=== PATIENT | female | born 1960 | race Caucasian/White ===

== ENCOUNTER 2019-12-01 15:24 | Inpatient (IN) | payer BC, OTHER ==
[2019-12-01] MEDS ORDERED: Morphine 4 MG/ML VIAL ONE (16:29)
[2019-12-01] MEDS ORDERED: Ondansetron PF 4 MG/2 ML Vial ONE ×2 (16:30→19:08)
[2019-12-01] MEDS ORDERED: Pantoprazole 40 MG VIAL ONE (16:30)
--- NOTE | 2019-12-01 16:55 | RAD ---
EXAM: CHEST ONE VIEW HISTORY: Preoperative evaluation. History of cirrhosis and rheumatoid arthritis. COMPARISON: None FINDINGS: The cardiac silhouette and pulmonary vasculature are within normal limits. There are emphysematous ch anges seen within the lungs. There are increased interstitial densities which may be related to chronic interstitial lung changes. No consolidation or pleural fluid is identified. The osseous struc tures are intact. IMPRESSION: Prominent of interstitial markings likely related to chronic lung changes as opposed to infectious pr ocess. Emphysematous changes are seen with biapical pleural and parenchymal scarring. No definite acute cardiopulmonary process.
--- NOTE | 2019-12-01 17:05 | ULT ---
ULTRASOUND ABDOMEN LIMITED: (RIGHT UPPER QUADRANT) DATE: 12/01/2019 HISTORY: 59-year-old female with nausea, vomiting, and right upper quadrant abdominal pain. FINDINGS: There is an approximately 20 mm gallstone at the junction between the body and neck of the gallbladde r, apparently immobile. Gallbladder lumen is distended. There is mural thickening and mural edema, wi th thickness up to 7 mm. There is a small amount of pericholecystic fluid. Liver is enlarged. Hepatic echogenicity is diffusely mildly increased, which may or may not represent fatty liver. There is no hydronephrosis of the right kidney. Common duct caliber is 4 mm. Pancreas is poorly visualized. IMPRESSION: Positive for cholelithiasis and evidence for acute cholecystitis. ISAAC Givens POS: JIN
[2019-12-01] MEDS ORDERED: HYDROcodone/Acetaminophen 7.5/325 mg Tablet PO PRN ×2 (19:22)
[2019-12-01] MEDS ORDERED: Ondansetron PF 4 MG/2 ML Vial IVP PRN (19:22)
[2019-12-01] MEDS ORDERED: Acetaminophen 650 MG Suppository PR PRN (19:22)
[2019-12-01] MEDS ORDERED: Morphine 2 MG/ML VIAL SLOW IVP PRN (19:28)
[2019-12-01] MEDS: Nicotine 21 MG PATCH TD SCH (23:25)
[2019-12-01] MEDS: Famotidine 20 MG TAB PO SCH (23:27)
[2019-12-01] MEDS: Piperacillin/Tazobactam 3.375 GM in Sodium Chloride 0.9% 100 ML IVPB SCH (23:28)
[2019-12-01] MEDS: Acetaminophen 325 MG TAB PO PRN (23:34)
[2019-12-02 00:01] VITALS: BMI 38.0
[2019-12-02 03:52] LABS: #Eosinphils 0.1 thou/uL (0.0-0.7); #Lymphocytes 2.1 thou/uL (1.20-3.40); #Monocytes 0.9 thou/uL (0.11-0.59); #Neutrophils 10.7 thou/uL (1.40-6.50); %Basophils 0.3 % (0.0-1.0); %Eosinophils 0.6 % (0.0-10.0); %Monocytes 6.5 % (0.0-10.0); %Neutrophils 77.5 % (42.0-75.0); Hemoglobin 11.9 g/dL (12.0-16.0); Mean Corpuscular Volume 93.2 fL (78.0-98.0); Mean Platelet Volume 7.8 fL (7.4-10.4); Platelet Count 170 thou/uL (130-400); RBC Distribution Width 11.7 % (11.5-14.5); White Blood Cell (WBC) Count 13.8 thou/uL (4.8-10.8)
[2019-12-02 04:06] LABS: ALT (SGPT) 14 U/L (8-55); AST (SGOT) 12 U/L (5-34); Albumin 3.6 g/dL (3.5-5.0); Alkaline Phosphatase 99 U/L (40-110); Anion Gap 11 mmol/L (10-20); BUN (Urea Nitrogen) 8 mg/dL (9.8-20.1); Bilirubin, Total 0.6 mg/dL (0.2-1.2); Calc. Creatinine Clearance 152 mL/min (70-130); Calcium 8.5 mg/dL (7.8-10.44); Carbon Dioxide 29 mmol/L (22-29); Chloride 102 mmol/L (98-107); Estimated GFR-MDRD Greater than 90; Globulin 2.6 g/dL (2.4-3.5); Glucose 152 mg/dL (70-105); Protein, Total 6.2 g/dL (6.0-8.3); Sodium 138 mmol/L (136-145)
[2019-12-02] MEDS: Acetaminophen 325 MG TAB PO PRN (05:35)
[2019-12-02] MEDS: Morphine 4 MG/ML VIAL SLOW IVP PRN ×2 (05:37→19:35)
[2019-12-02] MEDS: Piperacillin/Tazobactam 3.375 GM in Sodium Chloride 0.9% 100 ML IVPB SCH ×3 (05:44→17:46)
--- NOTE | 2019-12-02 05:49 | HP ---
CHIEF COMPLAINT: Abdominal pain. HISTORY OF PRESENT ILLNESS: Ms. Ortega is a 59-year-old woman, who has had constant severe abdominal pain in her upper abdomen radiating to her back since last night around 8 o'clock. She states that she had three episodes of explosive diarrhea on Saturday and just felt somewhat poorly through the weekend and her stomach started to bother her last night, but really got bad after she tried to go to bed. She describes it as a band-like burning pain in her upper abdomen that goes around to her back. She has had similar milder episodes of pain in this area before, but they have always gone away. She has not really noticed what brings the pain on or causes it to relent. She cannot identify any alleviating or exacerbating factors for this pain except for pain medication received in the emergency room. She was evaluated at her local ER and transferred here for further care due to concerns for cholecystitis. CT showed a very distended gallbladder with a stone in the neck of the gallbladder and abdominal ultrasound here confirmed cholelithiasis with an immobile stone at the neck of the gallbladder, the distended gallbladder with mural thickening and edema and some pericholecystic fluid consistent with cholecystitis. She has had several episodes of nonbloody non coffee-grounds emesis, which she attributes to the pain more than anything else. She has not had any fevers, chills, jaundice or icterus that she has noted. No history of pancreatitis or liver problems. PAST MEDICAL HISTORY: None. PAST SURGICAL HISTORY: Appendectomy and hysterectomy with bladder lift with mesh and a postoperative mesh infection requiring multiple operations over several years to manage the infection and remove the mesh. FAMILY HISTORY: Aortic aneurysms in her sister and brother. SOCIAL HISTORY: She is a 2-pack a day smoker for 40 years. Drinks only rarely. Has used marijuana rarely in the past but none recently and no other drugs. OUTPATIENT MEDICATIONS: None. She did receive Zosyn in the emergency room, as well as Zofran and morphine. ALLERGIES: NONE. PHYSICAL EXAMINATION: VITAL SIGNS: The patient has been afebrile in the emergency room. Heart rate 78, respirations 20, 94% saturated on room air, and blood pressure 152/86. GENERAL: Reveals a pleasant woman, in no acute distress, who appears her stated age. She is not flushed or toxic in appearance. She is not jaundiced or icteric. She does occasionally grimace, especially with moving around. HEENT: Unremarkable. Pupils are equal. Extraocular movements are symmetric. Facial movement is symmetric. NECK: Supple without lymphadenopathy or thyroid nodules. HEART: Regular in its rate and rhythm without murmurs, rubs, or gallops. LUNGS: Clear to auscultation bilaterally. ABDOMEN: Soft and nondistended. She is very tender to palpation in the right upper quadrant with Moctezuma sign. She does not exhibit rigidity, rebound or guarding. However, she has a healed Pfannenstiel incision and healed right lower quadrant incision as well as healed incisions on her right upper thigh from infection drainage from her pelvic mesh. No palpable hernias or masses. EXTREMITIES: Warm, well perfused without edema. NEURO: No focal deficits. PSYCHIATRIC: Alert, oriented and appropriate. IMAGING DATA: CT images and ultrasound images are reviewed and I agree with the written report. EKG has been ordered and is pending. She has emphysematous changes and prominent interstitial markings, which were felt to represent chronic lung changes on her chest x-ray. White count is elevated at 17,000 with a left shift. Electrolytes are unremarkable. Glucose is mildly elevated at 181. Lactate is mildly elevated at 2.7. Alkaline phosphatase is mildly elevated at 130 but AST, ALT, and bilirubin are normal and lipase is normal. ASSESSMENT: Acute cholecystitis and cholelithiasis. The pain is better controlled after receiving pain medications and antibiotics. She will be admitted and maintained on IV antibiotics for this and she has been put on the add-on schedule for tomorrow for laparoscopic cholecystectomy with cholangiogram given mild increase in alkaline phosphatase. I discussed her diagnosis with her and her . Inherent risks of the surgery were also discussed. These include, but are not limited to, bleeding, infection, risks of anesthesia, damage to nearby structures including bowel, liver, and bile duct, need for open surgery, need for other procedures. Her risk of bowel injury and open surgery are somewhat higher due to her extensive surgical history related to her pelvic mesh but hopefully, she will not have scarring in the upper abdomen and the surgery can still be done laparoscopically. She has an elevated glucose and I am going to check hemoglobin A1c with her morning labs. COVID test has been ordered as well. Repeat comprehensive metabolic panel in the morning has been ordered also and EKG will be reviewed. Smoking cessation was recommended and nicotine patch will be ordered while she is in the hospital. All of her questions were answered. Job ID: [id number]
[2019-12-02 07:32] LABS: SARS-CoV-2 NAA Rapid Test Not Detected (NotDetected)
[2019-12-02 09:10] LABS: Hemoglobin A1c 5.9 % (4.0-6.0)
[2019-12-02] MEDS ORDERED: Bupivacaine/Epinephrine 0.25% 30 ML VIAL ONE (10:13)
[2019-12-02] MEDS ORDERED: Iothalamate Meglumine 60% 50 ML VIAL FS ONE (10:15)
[2019-12-02] MEDS ORDERED: SUGAMMADEX SODIUM 200 MG/2 ML VIAL ONE (10:17)
[2019-12-02] MEDS ORDERED: Fentanyl 100 MCG/2 ML VIAL ONE ×4 (10:17→13:22)
[2019-12-02] MEDS ORDERED: Albuterol Sulfate HFA (OR ONLY) ONE ×2 (10:41→15:03)
[2019-12-02] MEDS ORDERED: Piperacillin/Tazobactam 3.375 GM VIAL ONE (10:44)
--- NOTE | 2019-12-02 11:48 | RAD ---
EXAM: Cholangiogram in surgery HISTORY: Cholelithiasis COMPARISON: Gallbladder ultrasound 12/01/2019 FINDINGS: Limited intraoperative fluoroscopic view was taken during a cholangiogram in surgery. The common bile duct is normal in caliber without filling defect. No leakage from the common bile duct. Contrast passes into the duodenum. No abnormality of the intrahepatic bile ducts. IMPRESSION: Unremarkable cholangiogram
[2019-12-02] MEDS ORDERED: Meperidine HCl/PF 25 MG/ML VIAL SLOW IVP PRN (12:26)
[2019-12-02] MEDS ORDERED: Ondansetron HCl/PF 4 MG/2 ML Vial IVP PRN (12:26)
[2019-12-02] MEDS ORDERED: Promethazine HCl 25 MG/ML VIAL IM PRN (12:26)
[2019-12-02] MEDS ORDERED: Morphine Sulfate 2 MG/ML SYRINGE SLOW IVP PRN (12:26)
[2019-12-02] MEDS ORDERED: Ketorolac Tromethamine 30 MG/ML VIAL IVP PRN (12:26)
[2019-12-02] MEDS ORDERED: Promethazine HCl 25 MG/ML VIAL SLOW IVP PRN (12:26)
[2019-12-02] MEDS ORDERED: Ibuprofen 200 MG TAB PO PRN (13:29)
[2019-12-02] MEDS ORDERED: traMADol HCl 50 MG TAB PO PRN (13:29)
[2019-12-02] MEDS: Famotidine 20 MG TAB PO SCH ×2 (14:26→19:36)
--- NOTE | 2019-12-02 14:38 | PDOC.OP ---
Operative Note - Operative Note Operative Note: DATE OF PROCEDURE: 12/02/2019 PROCEDURES: Laparoscopic cholecystectomy with intraoperative cholangiogram. SURGEON: Gracie Hoffman M.D. PREOPERATIVE DIAGNOSIS: Cholelithiasis and cholecystitis POSTOPERATIVE DIAGNOSIS: Cholelithiasis and cholecystitis FINDINGS: Very distended hydropic gallbladder with extensive edema in the wall. Acute and chronic omental adhesions stone impacted in the neck of the gallbladder. Normal IOC. HISTORY: Patient with acute cholecystitis with an immobile stone in the neck of the gallbladder. Laparoscopic cholecystectomy was recommended for symptomatic relief and prevention of future episodes. Intraoperative cholangiogram was also recommended due to mild elevation of alkaline phosphatase which has since come back down to normal. PROCEDURE: After informed consent was obtained and appropriate preoperative antibiotics were administered, the patient was taken to the operating room and placed in the supine position and general endotracheal anesthesia was administered. The stomach was decompressed with an OG tube and the abdomen was prepped and draped in standard sterile fashion. Local anesthesia was infused to the skin and subcutaneous tissues at the umbilical level. A transverse skin incision was made. The fascia was elevated and a Veress needle was placed into the abdominal cavity without difficulty. Opening pressure was less than 5 and carbon dioxide gas easily insufflated to an intra-abdominal pressure of 15, which the patient tolerated well. The Veress needle was withdrawn and a [place] port advanced under direct vision. The abdominal cavity was carefully examined. There was no evidence of Veress needle or of trocar injury. Local anesthesia was infused to the skin and subcutaneous tissues at the epigastric, right upper quadrant, and right lateral abdominal sites and trocars were placed under direct vision of the laparoscope. The fundus of the gallbladder was too taut to grasp so the gallbladder was aspirated with removal of about 100 mL of slightly cloudy but mostly colorless bile. This was sent for Gram stain and culture. After the gallbladder was decompressed, the fundus was grasped and retracted superiorly and acute edematous omental adhesions peeled off of the body of the gallbladder. The patient had an enlarged fatty gallbladder which cannot retract superiorly well, so the grasper on the fundus of the gallbladder was moved down to the body of the gallbladder to obtain better upward traction. At the level of the level of the neck of the gallbladder there were chronic omental adhesions which were taken down carefully through the avascular plane. There were some adhesions tethering the duodenum to the neck of the gallbladder as well and these adhesions were taken down sharply avoiding electrocautery in the region of the duodenum.. The infundibulum was then exposed and grasped and retracted laterally. The serosa was stripped inferiorly at the level of the neck of the gallbladder exposing the cystic duct and artery which were traced clearly to their insertion in the gallbladder. These were dissected free circumferentially and the cystic duct was clipped at the level of the neck of the gallbladder. The cystic artery was clipped but not divided. An incision was made in the cystic duct inferior to the clip and the cystic duct was palpated with no stones palpable. Clear bile was seen to flow from the cystic duct incision. A cholangiogram catheter was introduced and placed into the cystic duct and secured with a clip. A cholangiogram was obtained which showed an adequate length of cystic duct. There was normal filling of the common bile duct with free flow of contrast into the duodenum. There was normal retrograde flow into the common hepatic duct beyond the level of the bifurcation without filling defects. The cholangiogram catheter was removed and the cystic duct clipped below the incision in the cystic duct. The cystic duct was divided between these clips and the previously placed clip. The cystic artery was clipped and divided between the previously placed clips. The gallbladder was then dissected free of the gallbladder bed using hook electrocautery with moderate difficulty due to severe edema of the gallbladder. Prior to complete removal of the gallbladder from the gallbladder bed, the area of the cystic duct and artery stumps was examined. The clips were in good position completely across these structures and there was no bleeding and no leakage of bile. The gallbladder was then placed into an EndoCatch bag and drawn out through the epigastric incision after crushing and removing the stone in the gallbladder. The epigastric trocar was replaced and the operative site easily irrigated to clear. There was no significant bleeding or spillage of bile. The epigastric trocar was removed and the fascia closed under direct laparoscopic vision with a 0 Vicryl suture on a GraNee needle in a [id number] manner with excellent technical result. The right upper quadrant and right lateral abdominal trocars were removed and hemostasis verified. Carbon dioxide gas was allowed to desufflate through the umbilical trocar which was then removed. The fascia at the level of the umbilicus was visible and this was closed with a 0 Vicryl suture on a UR 6 needle under direct vision with excellent technical result. Additional local anesthesia was infused to the skin incisions for postoperative pain control. The skin incisions were closed with 4-0 subcuticular Monocryl sutures and Dermabond dressings were placed. The patient was extubated and taken to the recovery room in good condition. There were no complications. ESTIMATED BLOOD LOSS: Minimal. SPECIMEN : Gallbladder and contents, and bile for Gram stain and culture.
[2019-12-02] MEDS ORDERED: Lidocaine 1% PF 5 ML VIAL ONE (15:03)
[2019-12-02] MEDS ORDERED: Rocuronium Bromide 10 MG/ML (10ML VIAL) ONE (15:03)
[2019-12-02] MEDS ORDERED: PROPOFOL 200 MG/20 ML VIAL ONE (15:03)
[2019-12-02] MEDS: Nicotine 21 MG PATCH TD SCH (19:36)
[2019-12-03] MEDS: Piperacillin/Tazobactam 3.375 GM in Sodium Chloride 0.9% 100 ML IVPB SCH ×4 (00:12→17:29)
[2019-12-03] MEDS: Ibuprofen 800 MG TAB PO PRN ×3 (00:13→13:36)
[2019-12-03] MEDS ORDERED: Dextrose 5% in Water 1,000 ML IV PRN (07:28)
[2019-12-03] MEDS ORDERED: Dextrose 50% Abboject 50 ML SYRINGE SLOW IVP PRN (07:28)
[2019-12-03] MEDS ORDERED: Sodium Chloride 0.9% 1,000 ML IV SCH (07:30)
[2019-12-03 07:57] LABS: #Lymphocytes 1.5 thou/uL (1.20-3.40); #Monocytes 0.6 thou/uL (0.11-0.59); %Basophils 0.3 % (0.0-1.0); %Eosinophils 0.3 % (0.0-10.0); %Lymphocytes 14.8 % (21.0-51.0); %Monocytes 5.6 % (0.0-10.0); %Neutrophils 79.1 % (42.0-75.0); Mean Corpuscular HGB CONC 32.8 g/dL (32.0-36.0); Mean Corpuscular Hemoglobin 31.2 pg (27.0-31.0); Mean Corpuscular Volume 95.1 fL (78.0-98.0); Mean Platelet Volume 7.2 fL (7.4-10.4); Platelet Count 152 thou/uL (130-400); RBC Distribution Width 11.7 % (11.5-14.5); Red Blood Cell (RBC) Count 4.18 mill/uL (4.20-5.40); White Blood Cell (WBC) Count 10.1 thou/uL (4.8-10.8)
[2019-12-03 08:21] LABS: ALT (SGPT) 18 U/L (8-55); AST (SGOT) 17 U/L (5-34); Albumin 3.4 g/dL (3.5-5.0); Alkaline Phosphatase 93 U/L (40-110); Anion Gap 11 mmol/L (10-20); BUN (Urea Nitrogen) 9 mg/dL (9.8-20.1); Bilirubin, Total 0.6 mg/dL (0.2-1.2); Calc. Creatinine Clearance 167 mL/min (70-130); Calcium 8.3 mg/dL (7.8-10.44); Carbon Dioxide 32 mmol/L (22-29); Chloride 99 mmol/L (98-107); Estimated GFR-MDRD Greater than 90; Globulin 2.8 g/dL (2.4-3.5); Glucose 157 mg/dL (70-105); Potassium 4.4 mmol/L (3.5-5.1); Protein, Total 6.2 g/dL (6.0-8.3); Sodium 138 mmol/L (136-145)
[2019-12-03] MEDS: Famotidine 20 MG TAB PO SCH ×2 (09:01→21:02)
--- NOTE | 2019-12-03 10:09 | RAD ---
PORTABLE CHEST 1 VIEW: Date: 12/03/2019 Time: 0808 hours HISTORY: Low oxygen. COMPARISON: 12/01/2019. FINDINGS/IMPRESSION: The heart size is prominent. There is mild prominence of the pulmonary vascularity. No lobar consolid ation, pneumothoraces, or large effusions are seen. POS: OFF
--- NOTE | 2019-12-03 10:40 | PDOC.HOSPP ---
- Subjective Encounter Date: 12/03/19 Encounter Time: 10:15 Subjective: lethargic, has sob responds to verbal questions but wants to sleep has not ambulated post lap marichuy yet - Objective Vital Signs & Weight: Vital Signs (12 hours) Temp Pulse Resp BP Pulse Ox 12/03/19 08:00 98.1 F 86 16 141/71 H 92 L 12/03/19 07:57 98 12/03/19 07:54 88 20 99 12/03/19 03:57 98.2 F 88 20 136/70 99 12/03/19 00:00 97.9 F 106 H 16 135/72 92 L Weight Weight 228 lb 9.6 oz I&O: 12/02/19 12/03/19 12/04/19 06:59 06:59 06:59 Intake Total 890 Output Total 50 Balance 840 Result Diagrams: 12/03/19 07:47 12/03/19 07:47 Hospitalist ROS - Medication Medications: Active Medications Generic Name Dose Route Start Last Admin Trade Name Freq PRN Reason Stop Dose Admin Acetaminophen 650 mg 12/01/19 19:22 12/02/19 05:35 Acetaminophen 325 Mg Tab PO 650 mg Q4H PRN Administration Headache/Fever/Mild Pain (1-3) Famotidine 20 mg 12/01/19 21:00 12/03/19 09:01 Famotidine 20 Mg Tab PO 20 mg BID DAGO Administration Piperacillin Sod/Tazobactam 100 mls @ 200 mls/hr 12/01/19 23:59 12/03/19 05:51 Sod 3.375 gm/ Sodium Chloride IVPB 100 mls Q6HR DAGO Administration Ibuprofen 400 mg 12/02/19 13:29 12/03/19 09:01 Ibuprofen 800 Mg Tab PO 400 mg Q6H PRN Administration Moderate Pain (4-6) Nicotine 21 mg 12/01/19 21:00 12/02/19 19:36 Nicotine 21 Mg Patch TD 21 mg Q24HR DAGO Administration Ondansetron HCl 4 mg 12/01/19 19:22 12/03/19 02:46 Ondansetron Pf 4 Mg/2 Ml Vial IVP 4 mg Q6H PRN Administration Nausea/Vomiting Sodium Chloride 10 ml 12/01/19 21:00 12/03/19 09:02 Flush - Normal Saline 10 Ml Syringe IVF 10 ml Q12HR DAGO Administration - Exam Eye: PERRL, anicteric sclera ENT: no oropharyngeal lesions, dry oral mucosa Neck: supple, no JVD Heart: RRR, no murmur Respiratory: no wheezes, no rales, rhonchi Gastrointestinal: soft, non-distended, normal bowel sounds Extremities: no cyanosis, no edema Neurological: cranial nerve grossly intact, no focal deficits Hosp A/P (1) S/P laparoscopic cholecystectomy Code(s): Z90.49 - ACQUIRED ABSENCE OF OTHER SPECIFIED PARTS OF DIGESTIVE TRACT Status: Acute (2) Obesity (BMI 30-39.9) Code(s): E66.9 - OBESITY, UNSPECIFIED Status: Chronic (3) Tobacco abuse Code(s): Z72.0 - TOBACCO USE Status: Chronic (4) ANDREA (obstructive sleep apnea) Code(s): G47.33 - OBSTRUCTIVE SLEEP APNEA (ADULT) (PEDIATRIC) Status: Chronic - Plan counselled to be out of bed and ambulate as much as possible incentive spirometry mild steroids, nataliia is noncompliant with her cpap even at home off opiods, is on motrin for pain relief encourage po intake PT eval, cxr reviewed will f/u
--- NOTE | 2019-12-03 10:53 | PDOC.GSPN ---
Surgery Progress Note: Subj - Subjective Narrative: Patient very somnolent this morning, nodding off during conversation. Requiring 3-1/2 L of oxygen to maintain O2 sats. Intermittent productive cough. The pain she was having before surgery has improved but she is having a fair amount of incisional pain which limits her mobility and coughing. She reports on questioning today that she has been diagnosed with sleep apnea in the past, which she did not report to me at the time of her admission. She states that s he has a CPAP machine at home but it is old and does not work. She does not know her CPAP settings. Vital signs are okay except for marginal O2 sats requiring oxygen supplementation. Labs are okay. Gram-negative rods on bile culture. She is on Zosyn for this. Lungs are clear but respiratory effort is poor. Abdomen is soft with appropriate postoperative tenderness. Assessment/plan: Status post cholecystectomy doing well from a surgical standpoint but requiring significant supplemental O2 to maintain O2 sats. This is likely a combination of untreated sleep apnea and COPD from a [id number] history of smoking. I have asked the hospitalist to help with her medical management and have ordered scheduled nebs for her. I encouraged her to ambulate frequently and the nurses are going to academic coach her on incentive spirometry. Minimize narcotics. Surgery Progress Note: Obj - Vital signs Vital signs: Vital Signs - Most Recent Temp Pulse Resp BP Pulse Ox 98.1 F 86 16 141/71 H 92 L 12/03/19 08:00 12/03/19 08:00 12/03/19 08:00 12/03/19 08:00 12/03/19 08:00 Surgery Progress Note: Results - Labs Result Diagrams: 12/03/19 07:47 12/03/19 07:47 Lab results: Laboratory Results - last 24 hr 12/03/19 12/03/19 07:47 07:47 WBC 10.1 RBC 4.18 L Hgb 13.0 Hct 39.7 MCV 95.1 MCH 31.2 H MCHC 32.8 RDW 11.7 Plt Count 152 MPV 7.2 L Neutrophils % 79.1 H Lymphocytes % 14.8 L Monocytes % 5.6 Eosinophils % 0.3 Basophils % 0.3 Neutrophils # 8.0 H Lymphocytes # 1.5 Monocytes # 0.6 H Eosinophils # 0.0 Basophils # 0.0 Sodium 138 Potassium 4.4 Chloride 99 Carbon Dioxide 32 H Anion Gap 11 BUN 9 L Creatinine 0.60 Estimated GFR (MDRD) Greater than 90 Glucose 157 H Calcium 8.3 Total Bilirubin 0.6 AST 17 ALT 18 Alkaline Phosphatase 93 Serum Total Protein 6.2 Albumin 3.4 L Globulin 2.8 Albumin/Globulin Ratio 1.2
[2019-12-03] MEDS: methylPREDNISolone Sod Succ 40 MG VIAL IVP SCH ×2 (13:34→21:01)
[2019-12-03] MEDS: traMADol HCl 50 MG TAB PO PRN (17:41)
[2019-12-03] MEDS: Nicotine 21 MG PATCH TD SCH (21:02)
[2019-12-04] MEDS: Piperacillin/Tazobactam 3.375 GM in Sodium Chloride 0.9% 100 ML IVPB SCH ×5 (00:10→23:55)
[2019-12-04] MEDS: Ibuprofen 600 MG TAB PO PRN (00:14)
[2019-12-04] MEDS: traMADol HCl 50 MG TAB PO PRN ×2 (01:26→05:47)
[2019-12-04] MEDS: methylPREDNISolone Sod Succ 40 MG VIAL IVP SCH (05:12)
[2019-12-04] MEDS: HumaLOG 300 UNITS/3 ML VIAL SC PRN ×3 (06:31→20:40)
[2019-12-04] MEDS: Acetaminophen 325 MG TAB PO PRN (08:34)
[2019-12-04] MEDS: Famotidine 20 MG TAB PO SCH ×2 (08:35→20:40)
[2019-12-04] MEDS ORDERED: Enoxaparin Sodium 40 MG/0.4 ML SYRINGE SC SCH (10:15)
--- NOTE | 2019-12-04 11:50 | PDOC.HOSPP ---
- Subjective Encounter Date: 12/04/19 Encounter Time: 10:20 Subjective: feels better is ambulating in hallway still takes shallow breaths due to abd surgery - Objective Vital Signs & Weight: Vital Signs (12 hours) Temp Pulse Resp BP Pulse Ox 12/04/19 07:31 97.5 F L 84 16 139/68 90 L 12/04/19 06:40 76 20 96 12/04/19 04:00 97.9 F 85 16 123/67 91 L 12/04/19 01:04 96 12/04/19 00:00 97.7 F 79 16 123/62 92 L Weight Weight 228 lb 9.6 oz I&O: 12/03/19 12/04/19 12/05/19 06:59 06:59 06:59 Intake Total 890 2170 Output Total 50 Balance 840 2170 Result Diagrams: 12/03/19 07:47 12/03/19 07:47 Additional Labs: Accuchecks 12/04/19 12/04/19 12/03/19 11:39 05:30 20:46 POC Glucose 252 H 207 H 134 H 12/03/19 12/03/19 15:58 11:50 POC Glucose 129 H 165 H Hospitalist ROS - Medication Medications: Active Medications Generic Name Dose Route Start Last Admin Trade Name Freq PRN Reason Stop Dose Admin Acetaminophen 650 mg 12/01/19 19:22 12/04/19 08:34 Acetaminophen 325 Mg Tab PO 650 mg Q4H PRN Administration Headache/Fever/Mild Pain (1-3) Albuterol/Ipratropium 3 ml 12/03/19 13:00 12/04/19 06:40 Ipratropium/Albuterol Sulfate 3 Ml Neb NEB 3 ml [id number] DAGO Administration Enoxaparin Sodium 40 mg 12/04/19 10:15 12/04/19 10:46 Enoxaparin Sodium 40 Mg/0.4 Ml Syringe SC 12/04/19 12:15 40 mg NOW DAGO Administration Famotidine 20 mg 12/01/19 21:00 12/04/19 08:35 Famotidine 20 Mg Tab PO 20 mg BID DAGO Administration Piperacillin Sod/Tazobactam 100 mls @ 200 mls/hr 12/01/19 23:59 12/04/19 05:12 Sod 3.375 gm/ Sodium Chloride IVPB 100 mls Q6HR DAGO Administration Ibuprofen 400 mg 12/02/19 13:29 12/03/19 13:36 Ibuprofen 800 Mg Tab PO 400 mg Q6H PRN Administration Moderate Pain (4-6) Ibuprofen 600 mg 12/02/19 13:29 12/04/19 00:14 Ibuprofen 600 Mg Tab PO 600 mg Q6H PRN Administration Severe Pain (7-10) Insulin Human Lispro 0 units 12/03/19 07:28 12/04/19 06:31 Humalog 300 Units/3 Ml Vial SC 3 units .MILD SLIDING SCALE PRN Administration Mild Correctional Scale Methylprednisolone Sodium Succinate 20 mg 12/03/19 14:00 12/04/19 05:12 Methylprednisolone Sod Succ 40 Mg Vial IVP 20 mg Q8HR DAGO Administration Nicotine 21 mg 12/01/19 21:00 12/03/19 21:02 Nicotine 21 Mg Patch TD 21 mg Q24HR DAGO Administration Ondansetron HCl 4 mg 12/01/19 19:22 12/03/19 02:46 Ondansetron Pf 4 Mg/2 Ml Vial IVP 4 mg Q6H PRN Administration Nausea/Vomiting Sodium Chloride 10 ml 12/01/19 21:00 12/04/19 08:35 Flush - Normal Saline 10 Ml Syringe IVF 10 ml Q12HR DAGO Administration Tramadol HCl 50 mg 12/02/19 13:29 12/04/19 05:47 Tramadol Hcl 50 Mg Tab PO 50 mg Q4H PRN Administration Mild Pain (1-3) - Exam General Appearance: awake alert Eye: PERRL, anicteric sclera ENT: no oropharyngeal lesions, moist mucosa Neck: supple, no JVD Heart: RRR, no murmur Respiratory: no wheezes, no rales, rhonchi Gastrointestinal: soft, non-distended, normal bowel sounds, no rigidity Extremities: no cyanosis, no edema Neurological: cranial nerve grossly intact, no focal deficits Psychiatric: normal affect, A&O x 3 Hosp A/P (1) S/P laparoscopic cholecystectomy Code(s): Z90.49 - ACQUIRED ABSENCE OF OTHER SPECIFIED PARTS OF DIGESTIVE TRACT Status: Acute (2) Obesity (BMI 30-39.9) Code(s): E66.9 - OBESITY, UNSPECIFIED Status: Chronic (3) Tobacco abuse Code(s): Z72.0 - TOBACCO USE Status: Chronic (4) ANDREA (obstructive sleep apnea) Code(s): G47.33 - OBSTRUCTIVE SLEEP APNEA (ADULT) (PEDIATRIC) Status: Chronic (5) COPD exacerbation Code(s): J44.1 - CHRONIC OBSTRUCTIVE PULMONARY DISEASE W (ACUTE) EXACERBATION Status: Acute (6) Acute respiratory failure with hypoxia Code(s): J96.01 - ACUTE RESPIRATORY FAILURE WITH HYPOXIA Status: Acute - Plan counselled to be out of bed and ambulate as much as possible incentive spirometry mild steroids, nataliia is noncompliant with her cpap even at home (wants a new one, old one is stored someplace in house) off opiods, is on motrin for pain relief encourage po intake PT eval, cxr reviewed saturations drop to 85% on minimal exertion, needs another day of nebs, steroids and more ambulation in hospital plan is for her to go home off Oxygen may switch to levaquin from zosyn if ok with (cultures are back)
--- NOTE | 2019-12-04 13:16 | PDOC.GSPN ---
Surgery Progress Note: Subj - Subjective Narrative: Patient feels much better today. She is still hurting but not as much. She is more alert and has been coughing and ambulating more easily. Vital signs are okay but she is still requiring supplemental oxygen to maintain sats above 90%. Abdomen is soft and nondistended with appropriate postoperative tenderness. Incisions look good. Assessment/plan: Status post laparoscopic cholecystectomy doing well. Still requiring supplemental oxygen. This is likely due to her 2 pack-a-day smoking habit plus obesity and untreated sleep apnea. She was encouraged to continue with incentive spirometry and frequent ambulation coughing. She is on scheduled nebs. If we can wean her oxygen off she can be discharged home from a surgical standpoint. I did encourage her to schedule follow-up for her sleep apnea and get back on treatment for this. She is only receiving Tylenol or a single tablet of tramadol for her pain. Morphine and [place] were not administered posto peratively. Surgery Progress Note: Obj - Vital signs Vital signs: Vital Signs - Most Recent Temp Pulse Resp BP Pulse Ox 97.5 F L 84 16 139/68 90 L 12/04/19 07:31 12/04/19 07:31 12/04/19 07:31 12/04/19 07:31 12/04/19 07:31 Surgery Progress Note: Results - Labs Result Diagrams: 12/03/19 07:47 12/03/19 07:47 Lab results: Laboratory Results - last 24 hr 12/04/19 12/04/19 05:30 11:39 POC Glucose 207 H 252 H
[2019-12-04] MEDS: Nicotine 21 MG PATCH TD SCH (20:40)
[2019-12-05] MEDS: Ibuprofen 600 MG TAB PO PRN (02:46)
[2019-12-05] MEDS: Piperacillin/Tazobactam 3.375 GM in Sodium Chloride 0.9% 100 ML IVPB SCH (05:39)
[2019-12-05] MEDS ORDERED: predniSONE 20 MG TAB PO SCH (08:00)
[2019-12-05] MEDS ORDERED: Enoxaparin Sodium 40 MG/0.4 ML SYRINGE SC SCH (09:00)
[2019-12-05] MEDS: Famotidine 20 MG TAB PO SCH (09:15)
[2019-12-05 09:34] VITALS: BP 142/74; TEMP 98.1
--- NOTE | 2019-12-05 10:45 | PDOC.HOSPP ---
- Subjective Encounter Date: 12/05/19 Encounter Time: 10:44 Subjective: Ms. Ortega was seen today in follow-up of Cholecystitis and hypoxemia. She says she feels fine and wants to go home. - Objective Vital Signs & Weight: Vital Signs (12 hours) Temp Pulse Resp BP Pulse Ox 12/05/19 08:00 98.1 F 82 18 142/74 H 95 12/05/19 06:26 80 12 12/05/19 04:00 94 L 12/05/19 00:51 91 L 12/05/19 00:44 81 20 91 L 12/04/19 23:42 94 L Weight Weight 228 lb 9.6 oz I&O: 12/04/19 12/05/19 12/06/19 06:59 06:59 06:59 Intake Total 2170 1600 700 Balance 2170 1600 700 Result Diagrams: 12/03/19 07:47 12/03/19 07:47 Additional Labs: Accuchecks 12/05/19 12/04/19 12/04/19 05:46 16:39 11:39 POC Glucose 126 H 155 H 252 H Hospitalist ROS - Medication Medications: Active Medications Generic Name Dose Route Start Last Admin Trade Name Freq PRN Reason Stop Dose Admin Acetaminophen 650 mg 12/01/19 19:22 12/04/19 08:34 Acetaminophen 325 Mg Tab PO 650 mg Q4H PRN Administration Headache/Fever/Mild Pain (1-3) Albuterol/Ipratropium 3 ml 12/03/19 13:00 12/05/19 06:26 Ipratropium/Albuterol Sulfate 3 Ml Neb NEB 3 ml [id number] DAGO Administration Enoxaparin Sodium 40 mg 12/05/19 09:00 12/05/19 09:15 Enoxaparin Sodium 40 Mg/0.4 Ml Syringe SC 40 mg 0900 DAGO Administration Famotidine 20 mg 12/01/19 21:00 12/05/19 09:15 Famotidine 20 Mg Tab PO 20 mg BID DAGO Administration Piperacillin Sod/Tazobactam 100 mls @ 200 mls/hr 12/01/19 23:59 12/05/19 05:39 Sod 3.375 gm/ Sodium Chloride IVPB 100 mls Q6HR DAGO Administration Ibuprofen 400 mg 12/02/19 13:29 12/03/19 13:36 Ibuprofen 800 Mg Tab PO 400 mg Q6H PRN Administration Moderate Pain (4-6) Ibuprofen 600 mg 12/02/19 13:29 12/05/19 02:46 Ibuprofen 600 Mg Tab PO 600 mg Q6H PRN Administration Severe Pain (7-10) Insulin Human Lispro 0 units 12/03/19 07:28 12/04/19 20:40 Humalog 300 Units/3 Ml Vial SC 3 units .MILD SLIDING SCALE PRN Administration Mild Correctional Scale Nicotine 21 mg 12/01/19 21:00 12/04/19 20:40 Nicotine 21 Mg Patch TD 21 mg Q24HR DAGO Administration Ondansetron HCl 4 mg 12/01/19 19:22 12/03/19 02:46 Ondansetron Pf 4 Mg/2 Ml Vial IVP 4 mg Q6H PRN Administration Nausea/Vomiting Prednisone 20 mg 12/05/19 08:00 12/05/19 09:15 Prednisone 20 Mg Tab PO 20 mg QAM-WM DAGO Administration Sodium Chloride 10 ml 12/01/19 21:00 12/05/19 09:16 Flush - Normal Saline 10 Ml Syringe IVF 10 ml Q12HR DAGO Administration Tramadol HCl 50 mg 12/02/19 13:29 12/04/19 05:47 Tramadol Hcl 50 Mg Tab PO 50 mg Q4H PRN Administration Mild Pain (1-3) - Exam General Appearance: NAD Eye: PERRL, anicteric sclera Heart: RRR, no murmur, no gallops, no rubs, normal peripheral pulses Respiratory: CTAB, no wheezes, no rales, no ronchi, normal chest expansion, no tachypnea Gastrointestinal: soft, tender to palpation (+ mild diffuse tenderness no rebound or guarding) Extremities: no cyanosis, no edema Hosp A/P (1) Acute respiratory failure with hypoxia Code(s): J96.01 - ACUTE RESPIRATORY FAILURE WITH HYPOXIA Status: Acute (2) S/P laparoscopic cholecystectomy Code(s): Z90.49 - ACQUIRED ABSENCE OF OTHER SPECIFIED PARTS OF DIGESTIVE TRACT Status: Acute (3) ANDREA (obstructive sleep apnea) Code(s): G47.33 - OBSTRUCTIVE SLEEP APNEA (ADULT) (PEDIATRIC) Status: Chronic (4) Obesity (BMI 30-39.9) Code(s): E66.9 - OBESITY, UNSPECIFIED Status: Chronic (5) Tobacco abuse Code(s): Z72.0 - TOBACCO USE Status: Chronic - Plan * Cholecystitis- s/p Lap-marichuy- clinically stable- tolerating a solid diet * Respiratory failure- probably due to undiagnosed, COPD and Obesity hypoventilation * Will check her room air saturation. if she remains hypoxic, will arrange for home oxygen- this could be her baseline * Consider home with a short zoë of steroids,as well as Combivent inhaler * She has been counselled on smoking cessation
--- NOTE | 2019-12-06 01:22 | DIS ---
DATE OF ADMISSION: 12/01/2019 DATE OF DISCHARGE: 12/05/2019 PRIMARY CARE PHYSICIAN: Dr. Roe Bhardwaj. DISCHARGE DISPOSITION: Home. DISCHARGE DIAGNOSES: 1. Acute colicystitis. 2. Acute on chronic respiratory failure with hypoxemia. 3. Probable chronic obstructive pulmonary disease. 4. Tobacco abuse. 5. Probable obesity hypoventilation syndrome. DISCHARGE MEDICATIONS: 1. Combivent inhaler Respimat one puff b.i.d. 2. Prednisone 10 mg daily. 3. Ibuprofen 400 mg q.6. 4. Tramadol 50 mg q.6 as needed. IMAGING: Done during hospital stay: The patient had an abdominal ultrasound that is demonstrating cholelithiasis and evidence for acute cholecystitis. The patient had a laparoscopic cholecystectomy and intraoperative cholangiogram. CODE STATUS: Full code. ALLERGIES: NO KNOWN DRUG ALLERGIES. HOSPITAL COURSE: Ms. Ortega is a pleasant 59-year-old female, who presented to the emergency room with complaints of abdominal pain as well as nausea. She was evaluated and found to have evidence for acute cholecystitis. She was admitted and General Surgery was consulted. She underwent a laparoscopic cholecystectomy with intraoperative cholangiogram. She tolerated the procedure well. Her postop stay was complicated by hypoxemia, which was likely related to undiagnosed COPD as well as obesity hypoventilation. She is a smoker and there had been evidence on exam for reactive airway disease. She was placed on steroids and DuoNeb, and improved over the course of the next few days. She was on supplemental oxygen as well, and this was able to be weaned off and at the time of discharge, her oxygen saturation was approximately 92% on room air. She was tolerating a solid diet, and as such is being discharged home to have close outpatient followup. Job ID: [id number]
--- NOTE | 2019-12-06 02:00 | DIS ---
DATE OF ADMISSION: 12/01/2019 DATE OF DISCHARGE: 12/05/2019 ADMIT DIAGNOSIS: Acute cholecystitis. DISCHARGE DIAGNOSIS: Acute cholecystitis. PROCEDURE: Laparoscopic cholecystectomy by Dr. Hoffman without complication. CONDITION ON DISCHARGE: Improved. STAFF: Gracie Hoffman MD HOSPITAL COURSE: Postop, the patient had increased oxygen requirement secondary to her chronic sleep apnea. On the day of discharge though her room air sat is better and adequate, she is discharged home. Her pain is controlled. Prescription for pain medicines already sent to her pharmacy by Dr. Hoffman. She will follow up with Dr. Hoffman in 2 weeks. I recommended she take MiraLAX every day for constipation. Job ID: [id number]
== END 2019-12-05 11:45 | disposition home or self-care (01) | DRG 417 ==
LOC: ERS 15:24 → ONC 19:29
PROVIDERS: ADMIT Internal Medicine; ATTEND Surgery
PROC: 0FT44ZZ Resection of Gallbladder, Percutaneous Endoscopic Approach (ICD-10-PCS; principal; 2019-12-02)
PROC: BF101ZZ Fluoroscopy of Bile Ducts using Low Osmolar Contrast (ICD-10-PCS; 2019-12-02)
DX: K80.00 Calculus of gallbladder with acute cholecystitis without obstruction (principal); J96.21 Acute and chronic respiratory failure with hypoxia; K82.1 Hydrops of gallbladder; J44.1 Chronic obstructive pulmonary disease with (acute) exacerbation; E66.2 Morbid (severe) obesity with alveolar hypoventilation; K21.9 Gastro-esophageal reflux disease without esophagitis; E78.5 Hyperlipidemia, unspecified; E78.00 Pure hypercholesterolemia, unspecified; F17.210 Nicotine dependence, cigarettes, uncomplicated; K66.0 Peritoneal adhesions (postprocedural) (postinfection); Z20.828 Contact with and (suspected) exposure to other viral communicable diseases; Z90.49 Acquired absence of other specified parts of digestive tract; Z90.710 Acquired absence of both cervix and uterus; Z91.19 Patient's noncompliance with other medical treatment and regimen; Z68.38 Body mass index [BMI] 38.0-38.9, adult; K59.00 Constipation, unspecified
CPT/HCPCS: 36415; 36416; 47532; 71045; 76705; 80053; 83036; 83605; 85025; 87070; 87077; 87186; 87205; 87635; 88304; 93005; 94640; 96361; 96374; 96375; 96376; C9113; J0690; J1650; J2270; J2405; J2543; J2704; J2920; J3010; J3490; J7512; J7620; U0002; U0003